=== PATIENT | male | born 1965 | race African-American/Black ===

== ENCOUNTER 2018-10-13 08:56 | Emergency (ER) | payer BC ==
[~2018-10-13] VITALS: Ht 180.3 cm; Wt 106.6 kg
[~2018-10-13 08:56] MED LIST: ALBUTEROL INH INH; ALLOPURINOL 10100 M1 PO; ASPIRIN EC81 M1 PO; AZITHROMYCIN 2250 MG PO; BACTRIM DS TAB1 EACH PO; CYCLOBENZAPRINE5 MG PO; FLEXERIL PO; HYDROCODONE-AP1 EA11 PO; IBUPROFEN 800800 MG PO; KEFLEX500 MG PO; LO-DOSE ASPIRIN81 M1 PO; NAPROSYN500 MG PO; NITROGLYCERIN0.4 MG; NORCO 5-325 TA1 EACH PO; NORCO 7.5-3251 EACH PO; NORFLEX100 MG PO; PRILOSEC40 MG PO; TESSALON PERLE100 MG PO; ULTRAM 50MG TAB50 MG PO; VICODIN 5-5001 EACH PO; ZPAK PO
[2018-10-13 09:02] VITALS: BP 134/93
[2018-10-13] MEDS ORDERED: NORFLEX100 MG PO (09:16)
[2018-10-13] MEDS ORDERED: MEDROLDOSEPACK PO (09:16)
[2018-10-13] MEDS ORDERED: NAPROSYN500 MG PO (09:16)
== END 2018-10-13 09:37 | disposition home or self-care (01) ==
LOC: ER 08:56
DX: S39.012A Strain of muscle, fascia and tendon of lower back, initial encounter (principal); S46.819A Strain of other muscles, fascia and tendons at shoulder and upper arm level, unspecified arm, initial encounter; W17.81XA Fall down embankment (hill), initial encounter; Y93.89 Activity, other specified; Y92.89 Other specified places as the place of occurrence of the external cause; Y99.8 Other external cause status

== ENCOUNTER 2019-04-09 11:15 | Emergency (ER) | payer BC ==
[~2019-04-09] VITALS: Ht 180.3 cm; Wt 106.6 kg
[~2019-04-09 11:15] MED LIST changes: +MEDROLDOSEPACK PO
[2019-04-09 11:16] VITALS: BP 123/62
== END 2019-04-09 12:20 | disposition home or self-care (01) ==
LOC: ER 11:15
DX: M54.9 Dorsalgia, unspecified (principal); F17.210 Nicotine dependence, cigarettes, uncomplicated

== ENCOUNTER 2019-08-27 09:12 | Emergency (ER) | payer BC ==
[~2019-08-27] VITALS: Ht 180.3 cm; Wt 106.6 kg
[2019-08-27] MEDS ORDERED: ASA81BEC PO (09:20)
[2019-08-27] MEDS ORDERED: GABAPENTIN100 MG PO (09:21)
[2019-08-27] MEDS ORDERED: BACLOFEN 10MG T10 MG PO (09:21)
[2019-08-27] MEDS ORDERED: FLECTOR PATCH1 EA TOP (09:56)
[2019-08-27] MEDS ORDERED: NORCO 5-325 TA1 EAC1 PO (09:56)
[2019-08-27 10:05] VITALS: BP 131/75
== END 2019-08-27 10:05 | disposition home or self-care (01) ==
LOC: ER 09:12
DX: M54.2 Cervicalgia (principal); G47.00 Insomnia, unspecified; F17.210 Nicotine dependence, cigarettes, uncomplicated